=== PATIENT | male | born 1940 | race Caucasian/White ===

== ENCOUNTER 2023-10-03 10:55 | Emergency (ER) | payer MEDICARE, SELFPAY ==
[2023-10-03 11:08] VITALS: BP 132/96
[2023-10-03 11:42] VITALS: BP 166/76
[2023-10-03 11:56] VITALS: BMI 32.9
[2023-10-03 12:00] VITALS: BP 166/71
[2023-10-03 12:16] LABS: % Basophils 1.1 % (0-2); % Eosinophils 1.1 % (0-6); % Immature Granulocytes 0.4 % (0-0.5); % Lymphocytes 15.2 % (20.5-51.1); % Monocytes 9.3 % (1.7-9.3); % Neutrophils 72.9 % (42.2-75.2); Absolute Basophils 0.1 10^3/uL (0-0.2); Absolute Eosinophils 0.1 10^3/uL (0-0.7); Absolute Lymphocytes 1.3 10^3/uL (1.2-3.4); Absolute Monocytes 0.8 10^3/uL (0.1-0.6); Absolute Neutrophils 6.1 10^3/uL (1.4-6.5); Hematocrit 37.7 % (39.0-52.0); Hemoglobin 12.8 g/dL (13.0-18.0); Mean Corpuscular Hgb 30.1 pg (27.0-31.0); Mean Corpuscular Volume 88.7 fL (80.0-94.0); Nucleated Red Blood Cells % 0 % (-); Platelet Count 409 10^3/uL (130-400); Red Blood Cell Count 4.25 10^6/uL (4.70-6.10); Red Cell Dist. Width 14.5 % (11.5-14.5); White Blood Cell Count 8.3 10^3/uL (4.8-10.8)
[2023-10-03 12:28] LABS: ALT (SGPT) 63 U/L (0-50); AST (SGOT) 53 U/L (17-59); Albumin 3.8 g/dl (3.5-5.0); Alkaline Phosphatase 521 U/L (38-126); Blood Urea Nitrogen 18 mg/dl (9-20); Calcium 9.6 mg/dl (8.4-10.2); Carbon Dioxide 29 mmol/L (22-30); Chloride 104 mmol/L (98-107); Estimated Creatinine Clearance 60 ml/min; Glucose 110 mg/dl (70-99); Sodium 138 mmol/L (135-145); Total Protein 6.9 g/dl (6.3-8.2); eGFR > 60.00
[2023-10-03 12:34] LABS: Potassium 4.8 mmol/L (3.5-5.1)
[2023-10-03 13:16] VITALS: BP 188/75
[2023-10-03 14:00] VITALS: BP 164/71
[2023-10-03] MEDS: DUONEB 3 ML INH (14:08)
--- NOTE | 2023-10-03 14:34 | ED.GENMED ---
History of Present Illness
General
Chief Complaint: Breathing Problem
Source: patient
Time Seen by Provider: 10/03/23 12:48
Travel History
Have you had any contact with someone who has COVID-19?: No
Do you have any symptoms of coronavirus? Fever > 100 degrees, chills, cough, shortness of breath, sore throat, loss of taste or smell, muscle aches, or headache?: No
History of Present Illness
History of Present Illness:
83-year-old male presents to the emergency room complaining of shortness of breath. Patient feels more short of breath when he lays flat. Patient also recently evaluated for vertigo by his primary care doctor and started on meclizine. Patient was
felt to have benign paroxysmal positional vertigo. Patient also had a fall recently striking the back of his head. Feels like his breathing is worse since then. Patient did have loss of consciousness when he fell and struck his head. He feels
little fuzzy since then but no significant headache.
Past History
Past History
ED Past Medical History: Other (S/P cervical fusion, status post cholecystectomy, status post appendectomy)
Phy Exam
Physical Exam
Physical Exam:
General: Awake, Alert, Oriented X3. No acute distress.
Vitals: unremarkable
Head: Atraumatic
Eyes: Pupils equal, EOMI
Throat: Airway intact, no exudates
Neck: Trachea midline
Lungs: Clear and equal b/l
Heart: Regular rate, no murmurs
Abd: Soft, Nontender, No pulsatile mass
Neuro: Nonfocal
Skin: Warm, dry, no rash
Extremities: pulses equal b/l, 2+ edema
Scores
Heart Failure Risk
Heart Failure Risk Score: Not Applicable
Course
Orders/Labs/Results
Orders:
Orders
10/03/23 12:02
CR Chest - 2 Views Urgent
Comment:
Reason For Exam: shortness of breath
10/03/23 12:11
CMP [Comprehensive Metabolic Panel] Urgent
Complete Blood Count/With Diff Urgent
10/03/23 12:51
CT Head W/o Iv Contrast Urgent
Comment:
Reason For Exam: post fall, dizziness, headache
10/03/23 13:46
Ipratropium/Albuterol Sulfate [Duoneb] 3 ml INH R NOW STA
10/03/23 14:58
Meclizine [Antivert] 25 mg PO NOW STA
Abnormal Lab Results
10/03/23
12:11
RBC 4.25 L 10^6/uL
(4.70-6.10)
Hgb 12.8 L g/dL
(13.0-18.0)
Hct 37.7 L %
(39.0-52.0)
Plt Count 409 H 10^3/uL
(130-400)
MPV 12.0 H fL
(7.4-10.4)
Absolute Monos (auto) 0.8 H 10^3/uL
(0.1-0.6)
Lymphocytes % 15.2 L %
(20.5-51.1)
Glucose 110 H mg/dl
(70-99)
Total Bilirubin 2.0 H mg/dl
(0.2-1.3)
ALT 63 H U/L
(0-50)
Alkaline Phosphatase 521 H U/L
(38-126)
10/03/23 12:11
10/03/23 12:11
Vital Signs
Initial and Last Documented VS:
Initial Vital Signs
Temp Pulse Resp BP Pulse Ox
98.4 F 84 16 132/96 98
10/03/23 11:08 10/03/23 11:08 10/03/23 11:08 10/03/23 11:08 10/03/23 11:08
Last Documented Vital Signs
Temp Pulse Resp BP Pulse Ox
98.4 F 76 29 164/71 91
10/03/23 11:08 10/03/23 14:15 10/03/23 11:45 10/03/23 14:00 10/03/23 14:15
MDM/Problems Addressed
Differential Diagnosis Includes:
Subdural, subarachnoid, concussion, anemia, heart failure
MDM/Problems Addressed:
Patient's work appears unremarkable. No evidence for significant intracranial injury. Chest x-ray is unremarkable. I wonder if the patient is vertigo is giving him a sense of dyspnea but there is no evidence of any actual pulmonary or cardiac
issue. Patient stable for discharge home follow-up with his primary and follow-up with physical therapy for vestibular therapy
*Radiology
Radiology exam reviewed: radiology read reviewed
*Pulse Oximetry
Patient hypoxic: no
*Critical Care Note
Total Time (30-74mins, 75-104mins- exclusive of procedures): Not Applicable
ED Attending Note
-
Portions of this chart may have been created with voice recognition software.� Occasional wrong word or��sound alike� substitutions may have occurred due to the inherent limitations of voice recognition software.
Discharge Plan
Departure
Patient Disposition: Home (Routine Discharge)
Date of Disposition: 10/03/23
Time of Disposition: 14:58
Patient with high blood pressure during this ER visit?: Yes
Condition: Good
Discharge Problem:
Vertigo, Head injury, Dyspnea
Instructions: Head Injury in Adults (DC), Vertigo ED, BLOOD PRESSURE
Prescriptions:
No Action
amlodipine 5 MG tablet
5 mg PO DAILY
omeprazole 20 MG capsule,delayed release(DR/EC)
20 mg PO DAILY
multivitamin with folic acid [Tab-A-Yanet] 1 TABLET tablet
1 tab PO DAILY
ascorbic acid (vitamin C) [Vitamin C] 500 MG tablet
1,000 mg PO BID 0RF
zinc sulfate 220 MG capsule
220 mg PO DAILY 0RF
cholecalciferol (vitamin D3) 2,000 UNITS tablet
2,000 units PO DAILY 0RF
naproxen sodium [Aleve] 220 mg Tablet
440 mg PO DAILY
Referrals:
Cleve Cristobal MD [Family Provider] -
Activity Restrictions/Additional Instructions:
Take the meclizine every 8 hours as needed for dizziness. Please follow up with your primary care provider.
Interventions
Interventions:
*Risk Screen - Suicide Last Done: 10/03/23 11:56
*General Assessment Last Done: 10/03/23 11:56
*Neglect/Abuse Screening Last Done: 10/03/23 11:56
ED- Fall Risk Assessment Last Done: 10/03/23 11:56
*ED COVID-19 Vaccine History Last Done: 10/03/23 11:08
ED- Cardiac Assessment Last Done: 10/03/23 11:56
ED- Pulmonary Assessment Last Done: 10/03/23 11:56
[2023-10-03 15:00] VITALS: BP 168/73
[2023-10-03] MEDS: ANTIVERT 25 MG PO (15:06)
== END 2023-10-03 15:28 | disposition home or self-care (01) ==
LOC: EMR 10:55
PROVIDERS: EMERGENCY PHYSICIAN Emergency Medicine; FAMILY PHYSICIAN Family Medicine
DX: R42 Dizziness and giddiness (principal); S09.90XA Unspecified injury of head, initial encounter; R06.00 Dyspnea, unspecified; W19.XXXA Unspecified fall, initial encounter; Z90.49 Acquired absence of other specified parts of digestive tract
CPT/HCPCS: 99284; 94640; 70450; 71046; 80053; 85025